=== PATIENT | female | born 1970 | race Two or more races ===

== ENCOUNTER 2024-02-02 18:54 | Emergency (ER) | payer MEDICAID, OTHER ==
[~2024-02-02] VITALS: Ht 154.9 cm; Wt 79.4 kg
[2024-02-02 19:21] LABS: Basophils # (auto) 0.1 10 ^3/uL (0-0.2); Basophils % (auto) 1.1 % (0.0-2.0); Eosinophils # (auto) 0.6 10 ^3/uL (0-0.8); Eosinophils % (auto) 4.9 % (0.0-7.0); Hematocrit 39.4 % (36.0-46.0); Hemoglobin 13.5 g/dL (12.2-16.2); Lymphocytes # (auto) 4.1 10 ^3/uL (0.4-5.4); Lymphocytes % (auto) 33.5 % (10.0-50.0); Mean Corpuscular Hemoglobin 29.9 pg (28.0-32.0); Mean Corpuscular Hgb Conc. 34.4 g/dL (32.0-36.0); Monocytes # (auto) 0.9 10 ^3/uL (0-1.3); Monocytes % (auto) 7.6 % (0.0-12.0); Neutrophils # (auto) 6.5 10 ^3/uL (1.6-8.6); Neutrophils % (auto) 52.9 % (37.0-80.0); Nucleated Red Blood Cells % 0.1 %; Red Blood Cells 4.52 10^6/uL (4.0-5.20); Red Cell Distribution Width 13.7 % (11.8-14.3); White Blood Cell 12.2 10^3/uL (4.4-10.8)
[2024-02-02 19:30] LABS: Alanine Aminotransferase 40 U/L (7-40); Albumin 4.4 g/dL (3.2-4.8); Alkaline Phosphatase 115 U/L (46-116); Anion Gap 8 (5-15); Aspartate Aminotransferase 26 U/L (13-40); BUN/Creatinine Ratio 15.7 (10.0-20.0); Blood Urea Nitrogen 11 mg/dL (9-23); Calcium 9.6 mg/dL (8.7-10.4); Carbon Dioxide 24 mmol/L (20-30); Chloride 105 mmol/L (98-107); Glucose 101 mg/dL (74-106); Potassium 3.8 mmol/L (3.5-5.1); Sodium 137 mmol/L (136-145)
[2024-02-02 19:31] LABS: Bilirubin, Total 0.2 mg/dL (0.2-1.0); Total Protein 7.3 g/dL (5.7-8.2)
[2024-02-02] MEDS: ASPirin 81 mg TAB PO ONE (19:52)
[2024-02-02 21:22] VITALS: BP 127/87; PULSE 73; RESP 18; TEMP 98.2; O2SAT 95
[2024-02-02 21:54] LABS: COVID19 ANTIGEN SOFIA FIA NEGATIVE (NEGATIVE)
== END 2024-02-03 01:46 | disposition left against medical advice (07) ==
LOC: ER 18:54
DX: R07.89 Other chest pain (principal); R79.89 Other specified abnormal findings of blood chemistry; I10 Essential (primary) hypertension; E78.5 Hyperlipidemia, unspecified; Z20.822 Contact with and (suspected) exposure to COVID-19
CPT/HCPCS: 36415; 71045; 71275; 80053; 84484; 85025; 85379; 87426; 93005; 99285; Q9967

== ENCOUNTER 2024-02-06 12:37 | Emergency (ER) | payer MEDICAID ==
[~2024-02-06] VITALS: Ht 152.4 cm; Wt 76.6 kg
[2024-02-06 14:52] LABS: Rapid Strep A Screen-Throat Negative
[2024-02-06] MEDS ORDERED: PENI500T2 PO (15:01)
[2024-02-06] MEDS ORDERED: NAPR-746 PO (15:01)
[2024-02-06] MEDS ORDERED: LIDO2SOL26 MT (15:01)
[2024-02-06] MEDS ORDERED: METH4PAK PO (15:01)
[2024-02-06] MEDS: KETOROLAC TROMETH 30 MG/ML 1ML VIAL IM ONE (15:19)
[2024-02-06] MEDS: DexAMETHasone SOD PHOS 10MG/1ML VIAL INJ IM ONE (15:21)
[2024-02-06] MEDS: cefTRIAXone SOD 1,000 MG VL IM ONE (15:22)
[2024-02-06 15:40] VITALS: BP 111/77; PULSE 98; RESP 16; TEMP 98.9; O2SAT 96
== END 2024-02-06 15:54 | disposition home or self-care (01) ==
LOC: ER 12:45
DX: J03.90 Acute tonsillitis, unspecified (principal); R51.9 Headache, unspecified; M54.2 Cervicalgia; E78.5 Hyperlipidemia, unspecified
CPT/HCPCS: 87070; 87880; 96372; 99284; J0696; J1100; J1885